=== PATIENT | female | born 1960 | race Asian ===

== ENCOUNTER 2019-08-30 12:40 | Outpatient (CLI) | payer OTHER ==
[2019-08-30 12:55] LABS: PLATELET COUNT 189 K/uL (152-353)
[2019-08-30 13:20] LABS: POTASSIUM 3.9 mmol/L (3.6-5.2)
== END 2019-08-30 19:13 | disposition home or self-care (01) ==
LOC: LABW 12:40
PROVIDERS: Internal Medicine Cardiovascular Disease
DX: Z79.899 Other long term (current) drug therapy (principal)
CPT/HCPCS: 80053; 80061; 83880; 85027

== ENCOUNTER 2019-12-04 08:35 | Outpatient (CLI) | payer OTHER | END 2019-12-04 20:10 | disposition home or self-care (01) | LOC: RESP 08:35 | DX: R06.02 Shortness of breath (principal) ==

== ENCOUNTER 2019-12-31 01:08 | Emergency (ER) | payer OTHER ==
[~2019-12-31] VITALS: Ht 162.6 cm; Wt 138.3 kg
[2019-12-31 01:42] LABS: PLATELET COUNT 195 K/uL (152-353)
[2019-12-31 01:49] LABS: POTASSIUM 4.2 mmol/L (3.6-5.2); SODIUM 142 mmol/L (136-145)
[2019-12-31 02:08] LABS: PARTIAL THROMBOPLASTIN TIME 30.1 SECONDS (24.5-33.6)
[2019-12-31 03:05] VITALS: BP 146/84; TEMP 98.3
== END 2019-12-31 03:05 | disposition home or self-care (01) ==
LOC: ED 01:08
PROVIDERS: Hospitalist
DX: J45.909 Unspecified asthma, uncomplicated (principal); I10 Essential (primary) hypertension
CPT/HCPCS: 80053; 82550; 83880; 84484; 85027; 85610; 85730; 93005; 94664; 96374; 99284; J2930

== ENCOUNTER 2020-08-30 01:14 | Emergency (ER) | payer OTHER ==
[~2020-08-30] VITALS: Ht 162.6 cm; Wt 116.1 kg
[2020-08-30 01:52] LABS: PLATELET COUNT 174 K/uL (152-353)
[2020-08-30 01:53] LABS: POTASSIUM 3.5 mmol/L (3.6-5.2)
[2020-08-30 02:20] VITALS: BP 151/87; TEMP 98.4
== END 2020-08-30 02:40 | disposition home or self-care (01) ==
LOC: ED 01:14
PROVIDERS: Hospitalist
DX: J45.998 Other asthma (principal); I16.0 Hypertensive urgency
CPT/HCPCS: 36415; 80048; 85027; 96372; 99283; J2930

== ENCOUNTER 2020-11-05 13:17 | Emergency (ER) | payer OTHER ==
[~2020-11-05] VITALS: Ht 162.6 cm; Wt 136.1 kg
[2020-11-05 13:25] VITALS: TEMP 98.4
[2020-11-05 14:18] LABS: PLATELET COUNT 169 K/uL (152-353)
[2020-11-05 14:24] LABS: POTASSIUM 3.3 mmol/L (3.6-5.2); SODIUM 139 mmol/L (136-145)
[2020-11-05 16:21] VITALS: BP 160/85
== END 2020-11-05 16:22 | disposition home or self-care (01) ==
LOC: ED 13:17
PROVIDERS: Family Medicine
DX: R07.89 Other chest pain (principal); R06.4 Hyperventilation; F41.8 Other specified anxiety disorders
CPT/HCPCS: 80053; 81000; 82550; 84484; 85027; 93005; 99283

== ENCOUNTER 2020-12-26 16:13 | Outpatient (CLI) | payer OTHER | END 2020-12-26 20:07 | disposition home or self-care (01) | LOC: INF 16:13 | PROVIDERS: ATTEND Internal Medicine Endocrinology, Diabetes & Metabolism | DX: Z23 Encounter for immunization (principal) | CPT/HCPCS: 96372 ==

== ENCOUNTER 2021-01-21 13:03 | Outpatient (CLI) | payer OTHER | END 2021-01-21 19:23 | disposition home or self-care (01) | LOC: INF 13:03 | PROVIDERS: ATTEND Internal Medicine | DX: Z23 Encounter for immunization (principal) | CPT/HCPCS: 96372 ==

== ENCOUNTER 2021-04-22 10:46 | Emergency (ER) | payer OTHER ==
[~2021-04-22] VITALS: Ht 162.6 cm; Wt 136.1 kg
[2021-04-22 10:51] VITALS: TEMP 98.7
[2021-04-22 11:29] LABS: PLATELET COUNT 167 K/uL (152-353)
[2021-04-22 11:41] LABS: POTASSIUM 3.7 mmol/L (3.6-5.2)
[2021-04-22 12:58] VITALS: BP 185/99
== END 2021-04-22 12:58 | disposition home or self-care (01) ==
LOC: ED 10:46
PROVIDERS: Hospitalist
DX: R10.12 Left upper quadrant pain (principal); R10.32 Left lower quadrant pain; K21.9 Gastro-esophageal reflux disease without esophagitis; K59.09 Other constipation
CPT/HCPCS: 80053; 82150; 83690; 85027; 99283

== ENCOUNTER 2021-06-16 10:24 | Outpatient (CLI) | payer OTHER | END 2021-06-16 22:40 | disposition home or self-care (01) | LOC: MAMMO 10:24 | PROVIDERS: ATTEND Internal Medicine | DX: Z12.31 Encounter for screening mammogram for malignant neoplasm of breast (principal) ==

== ENCOUNTER 2023-01-23 15:54 | Emergency (ER) | payer OTHER ==
[~2023-01-23] VITALS: Ht 162.6 cm; Wt 136.1 kg
[2023-01-23 16:00] VITALS: TEMP 98.5
[2023-01-23 16:38] LABS: PLATELET COUNT 199 K/uL (152-353)
[2023-01-23 16:44] LABS: POTASSIUM 3.5 mmol/L (3.6-5.2)
[2023-01-23 17:15] VITALS: BP 146/83
== END 2023-01-23 17:15 | disposition home or self-care (01) ==
LOC: ED 15:54
PROVIDERS: Emergency Medicine
DX: I10 Essential (primary) hypertension (principal); F41.8 Other specified anxiety disorders; E87.6 Hypokalemia; I48.91 Unspecified atrial fibrillation
CPT/HCPCS: 36415; 80048; 84484; 85027; 93005; 99283